=== PATIENT | female | born 1965 | race Caucasian/White ===

== ENCOUNTER → 2023-09-27 13:43 | Outpatient (REF) | payer BC, SELFPAY | LOC: RAD 13:43 | PROVIDERS: ATTENDING PHYSICIAN Family Medicine | DX: L03.011 Cellulitis of right finger (principal) | CPT/HCPCS: 73140 ==

== ENCOUNTER → 2023-11-16 06:49 | Outpatient (REF) | payer BC, SELFPAY | LOC: HWWDC 06:49 | PROVIDERS: ATTENDING PHYSICIAN Nurse Practitioner Family; FAMILY PHYSICIAN Family Medicine; REFERRING PHYSICIAN Obstetrics & Gynecology | DX: Z12.31 Encounter for screening mammogram for malignant neoplasm of breast (principal) | CPT/HCPCS: 77063; 77067 ==

== ENCOUNTER 2024-04-02 06:56 | Day surgery (SDC) | payer BC, SELFPAY ==
[2024-03-27 09:17] LABS: Hematocrit 40.2 % (37.0-47.0); Hemoglobin 13.4 g/dL (12.0-16.0); Mean Corp Hgb Conc. 33.3 g/dL (33.0-37.0); Mean Corpuscular Hgb 29.3 pg (27.0-31.0); Mean Platelet Volume 9.5 fL (7.4-10.4); Platelet Count 228 10^3/uL (130-400); Red Blood Cell Count 4.57 10^6/uL (4.20-5.40); Red Cell Dist. Width 13.1 % (11.5-14.5); White Blood Cell Count 4.4 10^3/uL (4.8-10.8)
[2024-03-27 09:24] LABS: Blood Urea Nitrogen 26 mg/dl (7-17); Calcium 9.2 mg/dl (8.4-10.2); Carbon Dioxide 29 mmol/L (22-30); Chloride 101 mmol/L (98-107); Glucose 98 mg/dl (70-99); Potassium 4.2 mmol/L (3.5-5.1); Sodium 138 mmol/L (135-145); eGFR > 60.00
[2024-03-27 13:35] VITALS: BMI 25.9
[2024-04-02] VITALS (9 sets, daily range): BP systolic 109–178; BP diastolic 67–97; BMI 25.9
[2024-04-02] MEDS: HEPARIN 5000 UNITS SC (10:20)
[2024-04-02] MEDS: Pyridium 200 MG PO (10:21)
[2024-04-02] MEDS: NORMOSOL-R/PLASMALYTE-A 1000 IV (10:22)
== END 2024-04-02 15:15 | disposition home or self-care (01) ==
LOC: SDS 06:56
PROVIDERS: ATTENDING PHYSICIAN Obstetrics & Gynecology; FAMILY PHYSICIAN Family Medicine
DX: N81.2 Incomplete uterovaginal prolapse (principal); N32.81 Overactive bladder; N39.3 Stress incontinence (female) (male); N36.41 Hypermobility of urethra; N80.03 Adenomyosis of the uterus; D25.1 Intramural leiomyoma of uterus; N83.8 Other noninflammatory disorders of ovary, fallopian tube and broad ligament
CPT/HCPCS: 57425; 58542; 88305; 36415; 80048; 85027; 86850; 86900; 86901; 93005; C1763; J1580

== ENCOUNTER → 2024-11-19 07:52 | Outpatient (REF) | payer BC, SELFPAY | LOC: HWWDC 07:52 | PROVIDERS: ATTENDING PHYSICIAN Obstetrics & Gynecology; FAMILY PHYSICIAN Family Medicine | DX: Z12.31 Encounter for screening mammogram for malignant neoplasm of breast (principal) | CPT/HCPCS: 77063; 77067 ==

== ENCOUNTER → 2024-12-26 14:43 | Outpatient (REF) | payer BC, SELFPAY | LOC: HWRAD 14:43 | PROVIDERS: ATTENDING PHYSICIAN Physician Assistant; FAMILY PHYSICIAN Family Medicine | DX: E05.90 Thyrotoxicosis, unspecified without thyrotoxic crisis or storm (principal) | CPT/HCPCS: 76536 ==

== ENCOUNTER → 2025-02-25 15:37 | Outpatient (REF) | payer BC, SELFPAY | LOC: RAD 15:37 | PROVIDERS: ATTENDING PHYSICIAN Family Medicine | DX: R05.3 Chronic cough (principal) | CPT/HCPCS: 71046 ==